=== PATIENT | male | born 1960 | race Caucasian/White ===

== ENCOUNTER 2021-11-24 14:41 | Emergency (ER) | payer OTHER ==
[~2021-11-24] VITALS: Ht 182.9 cm; Wt 116.6 kg
== END 2021-11-24 20:23 | disposition home or self-care (01) ==
LOC: ER 14:41
DX: S83.91XA Sprain of unspecified site of right knee, initial encounter (principal); X58.XXXA Exposure to other specified factors, initial encounter; Y93.89 Activity, other specified; Y92.89 Other specified places as the place of occurrence of the external cause; Y99.9 Unspecified external cause status